=== PATIENT | male | born 1980 | race American Indian/Alaskan Native ===

== ENCOUNTER 2019-08-15 12:13 | Outpatient (CLI) | payer OTHER ==
--- NOTE | 2019-08-15 14:40 | XRay Report ---
Cervical spine-3 views INDICATION: CERVICAL/LUMPAR PAIN. COMPARISON: None. IMPRESSION: Normal alignment. Mild mid cervical discogenic DJD. No acute osseous or soft tissue ab normality. Signer Name: Fei Sunshine MD Signed: 08/15/2019 2:35 PM Workstation Name: [id number]
--- NOTE | 2019-08-15 14:42 | XRay Report ---
Lumbar spine-3 views Bilateral SI joints-4 total views INDICATION: CERVICAL/LUMPAR PAIN. COMPARISON: None. IMPRESSION: Normal alignment. No significant discogenic DJD or facet arthropathy. No acute osseous or soft tissue abnormality. Normal SI joints. Incidentally, there is mild lateral bony prominence a long each femoral head/neck junction bilaterally which can be associated with impingement (i.e. CAM-t ype femoroacetabular impingement). Signer Name: Fei Sunshine MD Signed: 08/15/2019 2:37 PM Workstation Name: [id number]
== END 2019-08-15 12:14 | disposition home or self-care (01) ==
LOC: SPVIMAG 12:13
PROVIDERS: ATTEND Internal Medicine
DX: M47.22 Other spondylosis with radiculopathy, cervical region (principal)
CPT/HCPCS: 72040; 72100; 72202